=== PATIENT | female | born 1980 | race Hispanic/Latino ===

== ENCOUNTER 2024-07-24 09:13 | Outpatient (CLI) | payer MEDICAID, SELFPAY ==
--- NOTE | ~2024-07-24 | MM_ITS ---
MM screening RODNEY implant BI W marlys INDICATION: Asymptomatic COMPARISON: 12/14/2018 and 11/21/2015 TECHNIQUE: Digital Breast Tomosynthesis CC, MLO, and implant displaced CC and MLO views of Both breas ts were obtained with computer-aided detection to assist in interpretation of the study. FINDINGS: : There are scattered areas of fibroglandular density. Bilateral breast retroglandular silicone implant in place appears intact. There is an asymmetry seen on the MLO ID view in the superior left breast centered at 5.9 cm posterio r to the nipple. No other focal dominant mass, architectural distortion, or suspicious microcalcifications are identif ied. IMPRESSION: 1. Left breast Asymmetry. 2. No evidence of malignancy in the Right breast. 3. Bilateral breast Retroglandular silicone implant appears intact. RECOMMENDATION: Left breast Diagnostic mammogram with true lateral, appropriate spot compression views and an ultraso und if needed. BI-RADS 0, INCOMPLETE, NEEDS ADDITIONAL IMAGING EVALUATION Reviewed, dictated and finalized at location B. IMPRESSION: 1. Left breast Asymmetry. 2. No evidence of malignancy in the Right breast. 3. Bilateral breast Retroglandular silicone implant appears intact. RECOMMENDATION: Left breast Diagnostic mammogram with true lateral, appropriate spot compressio n views and an ultrasound if needed. BI-RADS 0, INCOMPLETE, NEEDS ADDITIONAL IMAGING EVALUATION
--- OUTSIDE RECORDS SUMMARY | 2024-07-24 09:30 | XMS_ITS | Clinical Summary ---
Author Organization [facility] Address [address] [place] [address] Phone Care Team Providers Care Forge Hand Name Role Phone Kerrie Haque MD Primary Care Provider + Allergies No known active allergies Medications HYDROcodone-alyssia taminophen (HYCET) 7.5-325 mg/15 mL SolutionIndicat ions:Morbid obesity with body mass index of 40.0-49.9 (CMS/HCC) Take 15 mL by mouth every 6 hours as needed for Pain, Break-Through . Max Daily Amount: 60 mL 280 mL 10/26/2018 2:10 PM CDT 10/25/2018 Active ondansetron (ZOFRAN ODT) 4 mg Tablet, Rapid Dissolve Take 1 Tablet (4 mg) by mouth every 8 hours as needed for Nausea. Dissolve tablet on top of tongue, then swallow with saliva. 30 Tablet 10/26/2018 2:10 PM CDT 10/26/2018 Active Active Problems Problem Noted Date Diagnosed Date Obesity 10/25/2018 Morbid obesity with body mass index of 40.0-49.9 10/25/2018 Immunizations Immunization Administration Dates Next Due Influenza Seasonal Unspecified Formulation IM Social History Tobacco Use Types Packs/Day Years Used Date Smoking Tobacco: Never Smokeless Tobacco: Never Alcohol Use Standard Drinks/Week Comments Never 0 (1 standard drink = 0.6 oz pur e alcohol) Comments No Sex and Gender Information Value Date Recorded Sex Assigned at Not on file Legal Sex Female 8:45 AM CDT Gender Identity Not on file Sexual Orientation Not on file Last Filed Vital Signs Vital Sign Reading Time Taken Comments Blood Pressure 123/60 10/26/2018 4:50 PM CDT Pulse 62 10/26/2018 4:50 PM CDT Temperature 36.3 C (97.4 F) 10/26/2018 4:50 PM CDT Respiratory Rate 18 10/26/2018 4:50 PM CDT Oxygen Saturation 100% 10/26/2018 4:50 PM CDT Inhaled Oxygen Concentration - - Weight 106 kg (233 lb 11.2 oz) 10/26/2018 4:25 A M CDT Height 157.5 cm (5' 2) 10/25/2018 5:35 PM CDT Body Mass Index 42.74 10/25/2018 5:35 PM CDT Plan of Treatment Health Maintenance Due Date Last Done Comments Pre-Diabetes and Diabetes Screening 1980 DTAP/TDAP/TD VACCINES (1 - Tdap) 08/14/1999 HEPATITIS B VACCINES (1 of 3 - 19+ 3-dose series) 08/14/1999 HPV/Cotest (21-29) 2001 CERVICAL CANCER SCREENING 2010 HPV/Cotest (30-65) 2010 PAP SMEAR 2010 BREAST CANCER SCREENING 2020 INFLUENZA VACCINE (#1) 2023 12/12/2017 HPV VACCINES Aged Out No longer eligi ble based on patient's age to complete this topic Medical Devices Implanted Type Area Gray Mixing Operator Device Identifier Shelf Expiration Date Model / Serial / Lot Seamguard Endogia 60 Blck [id number] - [id number] Implanted:Qty : 2 on 10/25/2018 by Perfecto Galeana MD at [facility] [employer] N/A: Stomach [employer] 07/21/2021 [id number] / / [id number] Seamguard Endogia 60 Prpl [id number] - [id number] Implanted:Qty : 2 on 10/25/2018 by Perfecto Galeana MD at [facility] [employer] N/A: Stomach [employer] 07/21/2021 [id number] / / [id number] Insurance [facility] MEDICAID RX [id number] Medicare Part D RX [employer] PL[employer] (INTERNAL) [facility] Plans Advance Directives For more information, please contact: [phone] * Full Code (Latest Code Status on File) Date Activated Date Inactivated Comments 10/25/2018 5:36 PM 10/26/2018 7:38 PM * Full Code Date Activated Date Inactivated Comments 10/25/2018 12:08 PM 10/25/2018 5:36 PM * Full Code Date Activated Date Inactivated Comments 10/25/2018 11:53 AM 10/25/2018 12:08 PM Care Teams Forge Hand Relationship Specialty Start Date End Date Kerrie Haque MD [address] [place] [address] [place] [phone] PCP - General Family Practice 10/12/18
--- OUTSIDE RECORDS SUMMARY | 2024-07-24 09:30 | XMS_ITS | Encounter Summary ---
Author Organization [facility] Address [address] [place] [address] Care Team Providers Care Salvage Determiner Name Role Phone Kerrie Haque MD Primary Care Provider + Encounter Details Date Type Department Care Team (Late st Contact Info) Description 10/17/2018 Abstract [facility] Non Integrated Provider [address] [place] [address] [place] [address] [place] [address] [place] [address] Social History Tobacco Use Types Packs/Day Years Used Date Smoking Tobacco: Never Smokeless Tobacco: Never Alcohol Use Standard Drinks/Week Comments Never 0 (1 standard drink = 0.6 oz pur e alcohol) Comments No Sex and Gender Information Value Date Recorded Sex Assigned at Not on file Legal Sex Female 8:45 AM CDT Gender Identity Not on file Sexual Orientation Not on file documented as of this encounter Plan of Treatment Not on file documented as of this encounter Visit Diagnoses Not on filedocumented in this encounter Care Teams Salvage Determiner Relationship Specialty Start Date End Date Kerrie Haque MD [address] [place] [address] [place] [phone] PCP - General Family Practice 10/12/18 documented as of this encounter
--- OUTSIDE RECORDS SUMMARY | 2024-07-24 09:30 | XMS_ITS | Clinical Summary ---
Author Organization [facility] Address [address] [address] Care Team Providers Care Corrosion Technician Name Role Phone Kerrie Haque MD Primary Care Provider [phone] Kerrie Haque MD Unavailable [phone] Source Comments [facility],non-owned Affiliates and Associated Physician Practices is amultiple site organization consisting of ambulatory clinics and hospital sitesin [place], [place], [place] and [place]. This disclosure is being madepursuant to the Care Everywhere program and may not contain all information available regarding this patient. Last updated 17.[facility] Allergies No known active allergies Medications * Be aware that medications may not be up to date on this document. Alwaysverify current medications with the patient. 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 Gender Identity Not on file Sexual Orientation Not on file Last Filed Vital Signs Vital Sign Reading Time Taken Comments Blood Pressure 134/82 11/08/2016 6:36 PM CDT Pulse 86 11/08/2016 6:36 PM CDT Temperature 36.7 C (98.1 F) 11/08/2016 6:36 PM CDT Respiratory Rate - - Oxygen Saturation 99% 11/08/2016 6:36 PM CDT Inhaled Oxygen Concentration - - Weight 91.2 kg (201 lb) 11/08/2016 6:36 PM CDT Height 160 cm (5' 3) 11/08/2016 6:36 PM CDT Body Mass Index 35.61 11/08/2016 6:36 PM CDT Plan of Treatment Health Maintenance Due Date Last Done Comments LIPID TESTING 1980 MAMMOGRAM 1980 HIV SCREENING 08/14/1995 HEPATITIS C SCREENING 08/09/1998 DTAP/TDAP/TD VACCINES (1 - Tdap) 08/14/1999 HEPATITIS B VACCINE (1 of 3 - 19+ 3-dose series) 08/14/1999 COVID-19 VACCINE (1 - 2023-2 5 season) 2023 DEPRESSION SCREENING 02/22/2024 INFLUENZA VACCINE (Season Ended) 2024 11/25/19 18 ZOSTER VACCINE (1 of 2) 2030 HIB VACCINE Aged Out No longer eligi ble based on patient's age to complete this topic HPV VACCINE Aged Out No longer eligi ble based on patient's age to complete this topic MENINGOCOCCAL (Group B) VACC INE SHARED DECISION-MAKING Aged Out No longer eligibl e based on patient's age to complete this topic MENINGOCOCCAL GROUPS A/C/Y/W VACCINE Aged Out No longer eligible b ased on patient's age to complete this topic PNEUMOCOCCAL VACCINE Aged Out No long er eligible based on patient's age to complete this topic Insurance [facility] * Guarantor: MARGO ROSS Account Type Relation to Patient Date of Phone Billing Address Personal/Family 1980 [address] [place] [address] [facility] Care Teams Corrosion Technician Relationship Specialty Start Date End Date Kerrie Haque MD [address] [place] [phone] PCP - General Family Medicine 09/13/17 Kerrie Haque MD [address] [place] [phone] Family Medicine 09/13/17
--- OUTSIDE RECORDS SUMMARY | 2024-07-24 09:30 | XMS_ITS | Data Portability ---
Author Organization [place] [facility] [place], Main Office Address [address] [place] [address] Assessment No assessment recorded. Plan of Treatment Reminders Order Date Submit Date Provider Last Modified By Organization Details Last Modified Time Details Appointments Procedure 30 2024 09:00A Weston Parsons NP Not available Not available Not available Lab TSH + free T4, serum 2024 025 [facility], [address] [place], [address], 06/20/2024 17:41:37 T3, free, serum or plasma 2024 025 [facility], [address] [place], [address], 06/27/2024 08:21:19 lipid panel, serum 2024 025 [facility], [address] [place], [address], 06/20/2024 17:41:37 CBC w/ auto diff 2024 025 [facility], [address] [place], [address], 06/27/2024 08:21:19 ferritin, serum or plasma 2024 025 [facility], [address] [place], [address], 06/27/2024 08:21:20 magnesium , serum or plasma 2024 025 [facility], [address] [place], [address], 06/27/2024 08:21:20 iron + total iron-bind ing capacity (TIBC), serum 2024 025 [facility], [address] [place], [address], 06/27/2024 08:21:20 vitamin D, 25-hydrox y, total, serum 2024 [facility], [address] [place], [address], 06/27/2024 08:21:20 vitamin B12 + folate, serum or blood 2024 025 [facility], [address] [place], [address], 06/20/2024 17:41:38 CMP, serum or plasma 2024 025 [facility], [address] [place], [address], 06/20/2024 17:41:37 HbA1c (hemoglob in A1c), blood 2024 [facility], [address] [place], [address], 06/27/2024 08:21:19 Referral neurologi viji surgeon referral - Please call patient to schedule an appointme nt. Pt has [facility] as of July 22 per patient.. Thank you. 2024 GINA Fuller MD, [address] [facility], [address], [place], [address], 07/23/2024 18:25:17 Procedures None recorded. Surgeries None recorded. Imaging MAMMO, screening , digital, bilateral - Please call patient to schedule. 2024 025 [email or web address] ([facility]), [address], [place], [address], 07/19/2024 11:01:12 Medication Orders lactulose 10 gram/15 mL oral solution 2024 025 [id number], [address], [place], [place], [id number], 06/18/2024 09:34:51 Patient TargetsNo targets recorded. Patient InstructionsNo instructions recorded. Reason for Referral Neurological Surgeon Referra l for Chronic low back pain Please call patient to schedule an appointment. Pt has [facility] as of July 22 per patient.. Thank you. Referring Physician: Angeline Parsons, Family Medicine, Encounter Date: 06/18/2024 Results Created Date Observation Date Name Description Value Unit Range Abnormal Flag Note LastModifiedBy Organization Detail LastModifiedTime Result Notes None recorded. Problems Name Problem SNOMED Code Status Onset Date Resolution Date Notes Provider Name and Address Organization Details Recorded Time Dysuria 40463732 Active 2022 Kerrie Haque MD [address], [place] [address], [place], [address], [employer] 3 12:32:02 Chronic low back pain 124541133 Active 2024 MARCO A Patiño [address], [place] [address], [place], [address], [employer] 5 09:27:11 Constipation 00521069 Active 2024 MARCO A Patiño [address] [place] [address], [place], [address], [employer] 5 09:30:05 Problem Notes None recorded. Procedures Surgical History Date Name Laterality Status Provider Name and Address Organization Details Recorded Time bariatric operative procedure completed Rosalinda Juarez MA [facility] 06/18/2024 09:09:11 graft of skin to skin completed Rosalinda Juarez MA [facility] 06/18/2024 09:09:32 abdominoplasty completed Rosalinda Juarez MA [facility] 06/18/2024 09:10:12 ligation of fallopian tube completed Rosalinda Juarez MA [facility] 06/18/2024 09:10:49 Imaging Results None recorded. Procedure Notes None recorded. Medical Equipment None Reported. Allergies No known drug allergies Medications Name Sig Start Date Stop Date Status Note LastModified by Organization Details LastModified Time cyclobenzap rine 10 mg tablet TAKE 1/2 TO 1 TABLET BY MOUTH TWICE A DAY 06/18 completed Not Available Not Available Not Available prednisone 10 mg tablet PLEASE SEE ATTACHED FOR DETAILED DIRECTION S 06/18 completed Not Available Not Available Not Available ciprofloxac in 750 mg tablet TAKE 1 TABLET BY MOUTH EVERY DAY 06/18 completed Not Available Not Available Not Available azithromyci n 250 mg tablet 01/28 completed Not Available Not Available Not Available ibuprofen 800 mg tablet 01/28 completed Not Available Not Available Not Available fluconazole 150 mg tablet Take 1 tablet by oral route for 1 day. 01/28 completed Not Available Not Available Not Available phenazopyri dine 200 mg tablet TAKE 1 TABLET BY MOUTH EVERY 6 TO 8 HOURS NEEDED *MAX 3 DOSES/DAY * 06/18 completed Not Available Not Available Not Available prednisone 20 mg tablet TAKE 3 TABS DAILY X 3 DAYS, 2 TABS DAILY X 3 DAYS, 1 TAB DAILY X 3 DAYS,THEN 1/2 DAILY X 3 DAYS 06/18 completed Not Available Not Available Not Available terconazole 0.8 % vaginal cream 01/28 completed Not Available Not Available Not Available oxycodone 5 mg/5 mL oral solution TAKE 5MLS BY MOUTH EVERY 4 6 HOURS NEEDED FOR PAIN 06/18 completed Not Available Not Available Not Available topiramate 25 mg tablet 01/28 completed Not Available Not Available Not Available triamcinolo ne acetonide 0.5 % topical ointment APPLY TO AFFECTED AREA TWICE A DAY 06/18 completed Not Available Not Available Not Available ciprofloxac in 250 mg tablet 01/28 completed Not Available Not Available Not Available sulfamethox azole 800 mg-trimetho prim 160 mg tablet Take 1 tablet every 12 hours by oral route for 7 days. 06/18 completed Not Available Not Available Not Available aspirin 81 mg tablet,yenni yed release TAKE 1 TABLET BY MOUTH EVERY DAY 01/28 completed Not Available Not Available Not Available triamcinolo ne acetonide 0.1 % topical cream APPLY A THIN LAYER TO THE AFFECTED AREA(S) TWICE A DAY NEEDED FOR RASH 06/18 completed Not Available Not Available Not Available acyclovir 800 mg tablet 01/28 completed Not Available Not Available Not Available oxycodone-a cetaminophe n 5 mg-325 mg tablet TAKE 1 TABLET BY MOUTH EVERY 6 HOURS NEEDED FOR BREAKTHRO UGH PAIN 01/28 completed Not Available Not Available Not Available benzonatate 100 mg capsule TAKE 1-2 CAPSULES BY MOUTH THREE TIMES A DAY 01/28 completed Not Available Not Available Not Available triamcinolo ne acetonide 40 mg/mL suspension for injection Take 1 mL by injection route. 06/18 completed Not Available Not Available Not Available cephalexin 500 mg capsule TAKE 1 CAPSULE BY MOUTH EVERY 12 HOURS FOR 7 DAYS 01/28 completed Not Available Not Available Not Available cyanocobala min (vit B-12) 1,000 mcg/mL injection solution Inject 1 mL every month by subcutane ous route. 06/18 completed Not Available Not Available Not Available ferrous sulfate 325 mg (65 mg iron) tablet 06/18 completed Not Available Not Available Not Available progesteron e micronized 200 mg capsule TAKE 1 CAPSULE BY MOUTH TWICE A DAY 01/28 completed Not Available Not Available Not Available folic acid 1 mg tablet TAKE 1 TABLET BY MOUTH 4 TIMES A DAY DIRECTED 01/28 completed Not Available Not Available Not Available hydroxyzine HCl 25 mg tablet TAKE 1 TABLET BY MOUTH EVERY 6 TO 8 HOURS NEEDED 06/18 completed Not Available Not Available Not Available letrozole 2.5 mg tablet 06/18 completed Not Available Not Available Not Available methylpredn isolone 4 mg tablets in a dose pack TAKE 6 TABLETS ON DAY 1 DIRECTED ON PACKAGE AND DECREASE BY 1 TAB EACH DAY FOR A TOTAL OF 6 DAYS 01/28 completed Not Available Not Available Not Available ondansetron 4 mg disintegrat ing tablet 01/28 completed Not Available Not Available Not Available phentermine 37.5 mg capsule TAKE 1 CAPSULE BY MOUTH EVERY DAY 01/28 completed Not Available Not Available Not Available metoclopram ricci 10 mg tablet 01/28 completed Not Available Not Available Not Available nitrofurant oin monohydrate /macrocryst als 100 mg capsule TAKE 1 CAPSULE BY MOUTH TWICE A DAY FOR 5 DAYS 06/18 completed Not Available Not Available Not Available lactulose 10 gram/15 mL oral solution TAKE 15ML BY MOUTH EVERY DAY active Not Available Not Available No t Available Calcium 600 + D(3) 600 mg-10 mcg (400 unit) tablet TAKE 1 TABLET BY MOUTH TWICE A DAY active Not Available Not Available No t Available 28 mg iron-800 mcg tablet 01/28 completed Not Available Not Available Not Available PrePlus 27 mg iron-1 mg tablet TAKE 1 TABLET BY MOUTH EVERY DAY 06/18 completed Not Available Not Available Not Available Vol-Plus 27 mg iron-1 mg tablet 06/18 completed Not Available Not Available Not Available Bariatric Multivitami ns active Not Available Not Available Not Available Vitals Date Recorded Body mass index (BMI) Body height Oxygen saturation Oxygen saturation in Arterial blood by Pulse oximetry Heart rate Body temperature Body weight Provider Name and Address Organization Details Last Updated DateTime 2 24.8 kg/m2 160.02 cm 98 % 98 % 78 /min 96.9 [degF] 61970.9 3 g Not Available [facility] 3 14:54:24 Date Recorded Body height Body mass index (BMI) Body weight Body temperature Heart rate Oxygen saturation Oxygen saturation in Arterial blood by Pulse oximetry Systolic blood pressure Diastolic blood pressure Provider Name and Address Organization Details Last Updated DateTime 5 157.48 cm 28.3 kg/m2 99724.8 2 g 98.5 [degF] 75 /min 99 % 99 % 114 mm[Hg] 68 mm[Hg] Rosalinda Juarez MA [place] [employer] [facility] 5 09:05:08 Date Recorded Body mass index (BMI) Body height Oxygen saturation Oxygen saturation in Arterial blood by Pulse oximetry Heart rate Body temperature Body weight Systolic blood pressure Diastolic blood pressure Provider Name and Address Organization Details Last Updated DateTime 2 25.9 kg/m2 160.02 cm 98.02 % 98.02 % 76.02 /min 97.3 [degF] 98052.4 9 g 122 mm[Hg] 60 mm[Hg] Not Available [facility] 3 14:54:23 Date Recorded Body mass index (BMI) Body height Oxygen saturation Oxygen saturation in Arterial blood by Pulse oximetry Heart rate Body temperature Body weight Systolic blood pressure Diastolic blood pressure Provider Name and Address Organization Details Last Updated DateTime 1 24.1 kg/m2 160.02 cm 100 % 100 % 77 /min 97.9 [degF] 79204.5 6 g 122 mm[Hg] 64 mm[Hg] Not Available [facility] 3 14:54:23 Social History Question Answer Notes LastModified by [employer] ion Details LastModified Time Tobacco Smoking Status Never Smoker Not Available [facility] 04/21/2022 14:53:55 What Is Your Level Of Caffeine Consumption? None Information not available 06/18/2024 In The 14 Days Before Symptom Onset, Have You Had Close Contact With A Laboratory-confir med COVID-19 While That Case Was Ill? No [id number] Information not available 04/21/2022 In The 14 Days Before Symptom Onset, Have You Had Close Contact With A Person Who Is Under Investigation For COVID-19 While That Person Was Ill? No [id number] Information not available 04/21/2022 What Type Of Diet Are You Following? REGULAR [id number] Information not available 04/21/2022 Have There Been Any Changes To Your Family Or Social Situation? No Information no t available 06/18/2024 Do You Use Insect Repellent Routinely? Yes Information not available 06/18/2024 Where Do You Live? SingleLevelHouse Information not available 06/18/2024 What Was The Date Of Your Most Recent Tobacco Screening? 06/18/2024 Information not available 06/18/2024 How Many Children Do You Have? 6 Information not available 06/18/2024 Do You Have Any Pets? No Information not available 06/18/2024 What Is Your Relationship Status? Information not available 06/18/2024 Do You Use Your Seat Belt Or Car Seat Routinely? Yes Information not available 06/18/2024 Do You Have Smoke And Carbon Monoxide Detectors In Your Home? Yes Information not available 06/18/2024 Are You Passively Exposed To Smoke? No Information no t available 06/18/2024 Are There Any Smokers In Your House? No Information not available 06/18/2024 Do You Participate In Social Media? Yes Information not available 06/18/2024 Do You Use Sunscreen Routinely? Yes Information not available 06/18/2024 Has Tobacco Cessation Counseling Been Provided? No [id number] Information not available 04/21/2022 Have You Recently Traveled Abroad? No [id number] Information not available 04/21/2022 Are You Currently In School? No Information not available 06/18/2024 Do You Have Any Dietary Restrictions? No [id number] Information not available 04/21/2022 Sex: Unknown Functional Status Question Answer Note LastModified by Organizat ion Details LastModified Time Do you use any illicit or recreational drugs? No Information not available 06/18/2024 Do you or have you ever used any other forms of tobacco or nicotine? No [id number] Information not available 04/21/2022 What is your level of alcohol consumption? None Information not available 06/18/2024 Are you currently employed? No Information not available 06/18/2024 What is your exercise level? Occasional [id number] Information not available 04/21/2022 Mental Status Question Answer Note LastModified by Organization D etails LastModified Time Do you feel stressed (tense, restless, nervous, or anxious, or unable to sleep at night)? [id number] Information not available 06/18/2024 Family History Relationship Description Onset Age of this Age Resolved Age Notes LastModified by Organization Details LastModified Time Mother Hypertensive disorder [id number] Not available 04/21/2022 14:54:10 Mother History of thyroid disorder frivastorres Not available 08:58:32 Father Hypertensive disorder [id number] Not available 04/21/2022 14:54:10 Father History of thyroid disorder frivastorres Not available 08:58:32 Medical History No medical history recorded. Gynecological History Statement/Question Response Abnormal Pap N Date of LMP 06/09/2024 STIs/STDs N Dislike of Light during Menstrual Headac he N Current Control Method Tubal Ligat ion Most Recent Mammogram Breast Problems no How many live births 6 Date of Last Colonoscopy Most Recent Bone Density Sexually Active? Y Weight gain N Menses Monthly Y Date of Last Pap Smear Discharge no Obstetrics History GPAL:G 6 P 6 0 0 6 Type Value Multiple Births 0 Full Term 6 Induced 0 Spontaneous 0 Premature 0 Living 6 Ectopics 0 Total 6 Immunizations Vaccine Type Date Status Note Provider Nam e and Address Organization Details Recorded Time COVID-19 IV Non-US Vaccine (COVAXIN) 05/04/2020 completed Not Available [facility] 3 14:57:06 Influenza, split virus, quadrivalent, PF 01/10/2022 completed Not Available [facility] 3 14:57:06 Past Encounters Encounter ID Performer Location Encounter Start Date Encounter Closed Date Diagnosis/Indication Diagnosis SNOMED-CT Code Diagnosis ICD10 Code Diagnosis Note [id number] MICHELLE Finley [facility] Primary Care [facility] [address] [facility] [address] [place] [address] 06/17/2020 00:00:00 06/17/2020 20:04:22 [id number] Kerrie Haque MD [facility] Primary Care [facility] [address] [facility] [address] [place] [address] 07/15/2020 00:00:00 07/15/2020 09:24:10 [id number] [facility] [address] [facility] [address] [place] [address] 08/12/2020 00:00:00 08/12/2020 10:58:45 [id number] JOSE Ortez [facility] [place] [address] [place] [address] 01/28/2021 00:00:00 01/28/2021 20:59:43 [id number] JOSE Ortez [facility] Primary [place] [address] [place] [address] 03/23/2021 00:00:00 03/23/2021 16:19:32 [id number] JOSE Ortez [facility] Primary [place] [address] [place] [address] 06/24/2021 00:00:00 06/24/2021 21:34:26 [id number] MARCO A Patiño [facility] [place] [address] [facility] [address] [place] [address] 06/18/2024 08:56:34 06/18/2024 09:34:45 Adult health examination 663800875 Z00.00 Discussed medication compliance and routine follow up.Discuss ed healthy diet and routine exercise.Dominga lopeziewed vaccine records and made recommenda tions as needed.Enc ouraged annual eye and dental exams, as well as twice yearly dental cleanings. Will check screening labs as listed below. Family his tory of Cardiovascular disease 101678996 Z82.49 Thyroid di sorder screening 387916946 Z13.29 Diabetes m ellitus screening 784944969 Z13.1 Screening mammography 24 248674 Z12.31 History of bariatric surgical procedure 824706932 Z98.84 Chronic low back pain 27 7080242 M54.50 accident in 2003, was previously seeing neuro and was told she needed surgery but did not want it at that time. Body mass index 25-29 - overweight 398498918 Z68.28 Weight: 155 poundsBMI: 28.3Discus sed healthy diet and routine exercise. Constipation 51907376 K5 9.00 Increase water intake as tolerated. Will restart Lactulose as listed below. [id number] MARCO A Patiño [facility] Primary [place] [address] [facility] [address] [place] [address] 06/20/2024 09:49:05 06/20/2024 10:21:06 Health Concerns Section Related Observation LastModified by Organization Detai ls LastModified Time None Recorded Concern Status LastModified by Organization Details LastModified Time None Recorded Advance Directives Directive None Recorded Payers Encounter Date Sequence Insurance Name Policy Number Policy Aaron Covered Member ID Aaron Member ID Guarantor Name 06/18/2024 1 [place] [employer] Margo Zavala [id number] Margo Zavala 06/20/2024 1 [place] [employer] [facility] Margo Strickland Zavala [id number] Margo Zavala Notes Date Note Type Note Provider Name and Address Organization Details Recorded Time 06/18/2024 text/html Patient is a 43 year old female that presents to the office to establish care. blurry vision over the last few months, has not been to the eye doctor. labs- orderedWWE- awareMammogram- orderedColonosco py-age 45Flu- declinesCovid- UTD, initialTdap- awareShingles-ag e 50 Angeline Parsons, [employer] [address] [facility] [facility] [address], [place], [address], [place] [facility] [place] [facility] 06/18/2024 09:35:15 OBGyn Episode No OBEpisode recorded.
== END 2024-07-24 09:14 | disposition home or self-care (01) ==
PROVIDERS: PCP Family Medicine; Visit Provider Nurse Practitioner Family
DX: Z12.31 Encounter for screening mammogram for malignant neoplasm of breast (principal); Z98.82 Breast implant status; R92.8 Other abnormal and inconclusive findings on diagnostic imaging of breast
CPT/HCPCS: 77063; 77067

== ENCOUNTER 2024-09-06 10:18 | Outpatient (CLI) | payer BC, SELFPAY ==
--- NOTE | ~2024-09-06 | MM_ITS ---
EXAMINATION: MM diag telly implant LT w marlys HISTORY: Left breast asymmetry TECHNIQUE: Additional 3-D tomosynthesis images of the left breast were performed and synthetic 2-D im ages were generated. CAD analysis was submitted and interpreted. COMPARISON: 08/10/2024 BREAST PARENCHYMAL COMPOSITION:Not Dense. There are scattered areas of fibroglandular density. FINDINGS: Left breast asymmetry effaces with spot compression. No persistent mass lesion or distortio n seen. No suspicious microcalcifications. IMPRESSION: No mammographic evidence for malignancy. BI-RADS Category 1: Negative Reviewed, dictated and finalized at location .
--- OUTSIDE RECORDS SUMMARY | 2024-09-06 10:21 | XMS_ITS | Data Portability ---
Author Organization [facility] Address [address] [place] [address] Assessment No assessment recorded. Plan of Treatment Reminders Order Date Submit Date Provider Last Modified By Organization Details Last Modified Time Details Appointments None recorded. Lab test, urine 2018 019 blair In-Office Order, Internal Use Only DO Not Attach Compendium DO Not Attach Compendium, Do Not Delete/merge, [id number] 11:37:58 urinalysi s, dipstick 2018 019 blair In-Office Order, Internal Use Only DO Not Attach Compendium DO Not Attach Compendium, Do Not Delete/merge, [id number] 11:37:58 Referral None recorded. Procedures None recorded. Surgeries None recorded. Imaging CT, abdomen + pelvis, w/wo contrast 2018 019 [facility] ([facility]), [address] [place], [address], 9 17:37:55 Medication Orders cyanocoba pascual (vit B-12) 1,000 mcg/mL injection solution 2018 019 [email or web address] Not available 9 12:53:46 cyanocoba pascual (vit B-12) 1,000 mcg/mL injection solution 2018 019 [email or web address] Not available 9 11:29:12 cyanocoba pascual (vit B-12) 1,000 mcg/mL injection solution 2018 019 mwasserman Not available 9 17:14:45 Patient TargetsNo targets recorded. Patient Instructions Encounter Date Encounter Id Patient Instructions Last Modified By Organization Details Last Modified Time 05/11/[id number] scan of the abdomen: about this test blair Not available 05/11/2018 18:13:52 CT scan (3-D) blair Not available 0 05/11/2018 18:13:52 After Age 35: Care Instructions [email or web address] Not available 05/11/2018 11:37:58 12/08/2018 [id number] influenza (flu) vaccine: care instructions blair Not available 12/10/2018 12:53:46 Reason for Referral None Reported. Results Created Date Observation Date Name Description Value Unit Range Abnormal Flag Note LastModifiedBy Organization Detail LastModifiedTime 05/12/19 19 05/11/2018 urina lysis , dipst ick Leukocytes Negati ve Not Available In-Office Order Internal Use Only DO Not Attach Compendium DO Not Attach Compendium, Do Not Delete/merge, [id number] 05/11/2018 11:13:24 05/12/19 19 05/11/2018 urina lysis , dipst ick Nitrite positi ve Not Available In-Office Order Internal Use Only DO Not Attach Compendium DO Not Attach Compendium, Do Not Delete/merge, [id number] 05/11/2018 11:13:24 05/12/19 19 05/11/2018 urina lysis , dipst ick Urobilinogen 1 Not Available In-Of fice Order Internal Use Only DO Not Attach Compendium DO Not Attach Compendium, Do Not Delete/merge, [id number] 05/11/2018 11:13:24 05/12/19 19 05/11/2018 urina lysis , dipst ick Protein 300 Not Available In-Office Order Internal Use Only DO Not Attach Compendium DO Not Attach Compendium, Do Not Delete/merge, [id number] 05/11/2018 11:13:24 05/12/19 19 05/11/2018 urina lysis , dipst ick pH 5.0 Not Available In-Office Order Internal Use Only DO Not Attach Compendium DO Not Attach Compendium, Do Not Delete/merge, [id number] 05/11/2018 11:13:24 05/12/19 19 05/11/2018 urina lysis , dipst ick Blood Large Not Available In-Office Order Internal Use Only DO Not Attach Compendium DO Not Attach Compendium, Do Not Delete/merge, [id number] 05/11/2018 11:13:24 05/12/19 19 05/11/2018 urina lysis , dipst ick Specific [place] 1.020 Not Available In-Off ice Order Internal Use Only DO Not Attach Compendium DO Not Attach Compendium, Do Not Delete/merge, [id number] 05/11/2018 11:13:24 05/12/19 19 05/11/2018 urina lysis , dipst ick Ketone Small Not Available In-Office Order Internal Use Only DO Not Attach Compendium DO Not Attach Compendium, Do Not Delete/merge, [id number] 05/11/2018 11:13:24 05/12/19 19 05/11/2018 urina lysis , dipst ick Bilirubin Modera te Not Available In-Office Order Internal Use Only DO Not Attach Compendium DO Not Attach Compendium, Do Not Delete/merge, [id number] 05/11/2018 11:13:24 05/12/19 19 05/11/2018 urina lysis , dipst ick Glucose Negati ve Not Available In-Office Order Internal Use Only DO Not Attach Compendium DO Not Attach Compendium, Do Not Delete/merge, [id number] 05/11/2018 11:13:24 05/12/19 19 05/11/2018 pregn zoe test, urine HCG negati ve Not Available In-Office Order Internal Use Only DO Not Attach Compendium DO Not Attach Compendium, Do Not Delete/merge, [id number] 05/11/2018 11:13:16 05/27/1905/21/2018 CT, abdom en + pelvi s, w/wo contr ast No observ ation record ed. [facility] ([facility]) [address] [place], [address], 05/26/2018 17:37:55 Result Notes None recorded. Problems Name Problem SNOMED Code Status Onset Date Resolution Date Notes Provider Name and Address Organization Details Recorded Time Polycysti c ovaries Active Lorna Ellisaw, [place] null, [place] - [facility] 8 10:26:15 Irritable bowel syndrome 11061309 Active Lorna PetersshawANGELITO [place], [place] - [facility] 8 10:26:15 Hyperlipi demia 83361396 Active Josemanuel BlevinsANGELITO zuniga [place], [place] - [facility] 9 11:23:47 Deliverie s by Active 2017 Becky Varsha [place] [facility] 0 09:19:18 Obesity 426167460 Active 2017 Santos Carreno [place] [facility] 8 11:15:50 Deliverie s by Completed 2017 Becky Varsha [place] [facility] 0 09:19:18 60154256 Completed 201708/29/2017 Santos Carren[place] [facility] 8 10:59:48 Advanced maternal age 316531504 Completed 2017 Becky Varsha [place] [facility] 0 09:19:17 Advanced maternal age 528538080 Active 2017 Becky Vars[place] [facility] 0 09:19:17 Chronic idiopathi c constipat ion 30830309 Completed 2017 Becky V[place] [facility] 0 09:19:17 Chronic idiopathi c constipat ion 56688453 Active 2017 Becky Vars[place] [facility] 0 09:19:17 Herpes simplex 75118221 Completed 2017 Becky Vars[place] [facility] 0 09:19:18 Herpes simplex 94854693 Active 2017 Becky [place] [facility] 0 09:19:18 5,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 16235204 Completed 2017 Becky Varsha [place], [place] [facility] 0 09:19:17 5,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 Procedures Surgical History Date Name Laterality Status Provider Name and Address Organization Details Recorded Time 9 TUBAL LIGATION AT TIME OF (SURG) completed Santos Carreno [facility] 04/13/2018 21:21:26 8 Date of Last Pap Smear completed Lorna Mireles MA [facility] 07/12/2017 10:30:28 4 Caesarean Section completed Lorna Mireles MA [facility] 07/12/2017 10:35:19 2 Other completed Margaret Eric MA [facility] 10/22/2014 14:57:59 2 Other completed Margaret Eric MA [facility] 10/22/2014 14:57:59 8 Caesarean Section completed Lorna Mireles MA [facility] 07/12/2017 10:35:29 Imaging Results None recorded. Procedure Notes None recorded. Medical Equipment None Reported. Allergies No known drug allergies Medications Name Sig Start Date Stop Date Status Note LastModified by Organization Details LastModified Time metformin 500 mg tablet Take 1 tablet twice a day by oral route. 07/12 completed Not Available Not Available Not Available azithromyci n 250 mg tablet 12/08 completed Not Available Not Available Not Available ibuprofen 800 mg tablet 12/08 completed Not Available Not Available Not Available fluconazole 150 mg tablet Take 1 tablet by oral route. 08/29 completed Not Available Not Available Not Available hydrocodone 5 mg-acetamin ophen 325 mg tablet 07/12 completed Not Available Not Available Not Available terconazole 0.8 % vaginal cream Insert 1 applicato rful every day by vaginal route for 3 days. 08/29 completed Not Available Not Available Not Available Maximo Low Dose Aspirin 81 mg tablet,yenni yed release Take 1 tablet every day by oral route. 12/08 completed Not Available Not Available Not Available penicillin V potassium 500 mg tablet 08/29 completed Not Available Not Available Not Available topiramate 25 mg tablet 10/25 completed Not Available Not Available Not Available metronidazo le 500 mg tablet 07/12 completed Not Available Not Available Not Available ciprofloxac in 250 mg tablet 07/12 completed Not Available Not Available Not Available ciprofloxac in 500 mg tablet 07/12 completed Not Available Not Available Not Available sulfamethox azole 800 mg-trimetho prim 160 mg tablet 07/12 completed Not Available Not Available Not Available tramadol 50 mg tablet 07/12 completed Not Available Not Available Not Available acyclovir 800 mg tablet Take 1 tablet every day by oral route. 12/08 completed Not Available Not Available Not Available Vitamin tablet Take 1 tablet every day by oral route as directed for 90 days. 2017 active Not Available Not Available Not Avai lable oxycodone-a cetaminophe n 5 mg-325 mg tablet 12/08 completed Not Available Not Available Not Available amoxicillin 875 mg tablet 08/29 completed Not Available Not Available Not Available dicyclomine 20 mg tablet 12/08 completed Not Available Not Available Not Available cephalexin 500 mg capsule TAKE 1 CAPSULE(S ) 3 TIMES A DAY BY ORAL ROUTE FOR 10 DAYS. 12/08 completed Not Available Not Available Not Available simvastatin 20 mg tablet Take 1 tablet every day by oral route. 07/12 completed Not Available Not Available Not Available cyanocobala min (vit B-12) 1,000 mcg/mL injection solution Inject 1 mL every month by subcutane ous route. 2018 active Not Available Not Available Not Avai lable ferrous sulfate 325 mg (65 mg iron) tablet active Not Available Not Available Not Available promethazin e 25 mg tablet 07/12 completed Not Available Not Available Not Available progesteron e micronized 200 mg capsule one PO twice daily 12/08 completed Not Available Not Available Not Available diclofenac sodium 75 mg tablet,yenni yed release 07/12 completed Not Available Not Available Not Available folic acid 1 mg tablet Take 1 tablet 4 times a day by oral route as directed. 12/08 completed Not Available Not Available Not Available levofloxaci n 500 mg tablet 07/12 completed Not Available Not Available Not Available letrozole 2.5 mg tablet Take 1 tablet every day by oral route. 08/29 completed Not Available Not Available Not Available Vitamin D2 1,250 mcg (50,000 unit) capsule 07/12 completed Not Available Not Available Not Available norethindro ne (contracept [place]) 0.35 mg tablet Take 1 tablet every day by oral route. 07/12 completed Not Available Not Available Not Available ondansetron 4 mg disintegrat ing tablet 10/25 completed Not Available Not Available Not Available medroxyprog esterone 150 mg/mL intramuscul ar suspension 07/12 completed Not Available Not Available Not Available dicyclomine 10 mg capsule Take 1 capsule 3 times a day by oral route as needed. 07/12 completed Not Available Not Available Not Available naproxen 500 mg tablet Take 1 tablet twice a day by oral route. 07/12 completed Not Available Not Available Not Available metoclopram ricci 10 mg tablet Take 1 tablet 4 times a day by oral route. active Not Available Not Available No t Available amoxicillin 875 mg-potassiu m clavulanate 125 mg tablet 08/29 completed Not Available Not Available Not Available Oyster Shell Calcium-Vit pardo D3 500 mg-5 mcg (200 unit) tablet 08/29 completed Not Available Not Available Not Available topiramate 50 mg tablet 08/29 completed Not Available Not Available Not Available nitrofurant oin monohydrate /macrocryst als 100 mg capsule 12/08 completed Not Available Not Available Not Available lactulose 10 gram/15 mL oral solution Take 15 mL every day by oral route. active Not Available Not Available No t Available Calcium 600 + D(3) 600 mg-10 mcg (400 unit) tablet Take 1 tablet twice a day by oral route. 01/16 completed Not Available Not Available Not Available Calcium with Vitamin D3 600 mg (carbonate) -10 mcg (400 unit) capsule Take 1 capsule twice a day by oral route. 2018 active Not Available Not Available Not Avai lable Calcium 500 + D 500 mg-10 mcg (400 unit) tablet Take 1 tablet by oral route. 07/12 completed Not Available Not Available Not Available 28 mg iron-800 mcg tablet active Not Available Not Available N ot Available lactulose 10 gram/15 mL (15 mL) oral solution Take 15 mL every day by oral route. 07/12 completed Not Available Not Available Not Available Linzess 145 mcg capsule Take 1 capsule every day by oral route. 07/12 completed Not Available Not Available Not Available PrePlus 27 mg iron-1 mg tablet Take 1 tablet every day by oral route. 12/08 completed Not Available Not Available Not Available Xulane 150 mcg-35 mcg/24 hr transdermal patch Appy 1 patch to skin weekly 2014 active Not Available Not Available Not Avai lable Vol-Plus 27 mg iron-1 mg tablet TAKE 1 TABLET(S) EVERY DAY BY ORAL ROUTE. FOR VITAMIN DEFICIENC Y 12/08 completed Not Available Not Available Not Available Vitals Date Recorded Body height Body mass index (BMI) Body weight Systolic And Diastolic Provider Name and Address Organization Details Last Updated DateTime 05/11/2018 160.02 cm 39.5 kg/m2 272503.1 g 126/78 mm[Hg] Josemanuel Kim MA [facility] 05/11/2018 11:26:29 Date Recorded Body height Body mass index (BMI) Body weight Provider Name and Address Organization Details Last Updated DateTime 12/08/2018 160.02 cm 37.4 kg/m2 04318.99 g Kerrie Mena MA [facility] 12/08/2018 15:25:44 Social History Question Answer Notes LastModified by Organizat ion Details LastModified Time Tobacco Smoking Status Never Smoker Margaret Eric MA null, [facility] 10/22/2014 14:57:59 Do You Have An Advance Directive? No Information not available 10/22/2014 If You Are , What Was Your Level Of Alcohol Consumption Prior To ? None Information not available 08/29/2017 Is Blood Transfusion Acceptable In An Emergency? Yes Information not available 10/22/2014 What Is Your Level Of Caffeine Consumption? Occasional Information not available 10/22/2014 Live With Cats/exposure To Cat Litter No Information not available 08/29/2017 How Much Tobacco Do You Chew? None Information not available 10/22/2014 What Type Of Diet Are You Following? REGULAR Information not available 10/22/2014 Which Illicit Or Recreational Drugs Have You Used? None Information not available 10/22/2014 Education 10 Information no t available 10/22/2014 Have There Been Any Changes To Your Family Or Social Situation? No Information no t available 08/29/2017 Frequent Air Travel No Information not available 08/29/2017 Illicit Drugs Pre- None Information not available 08/29/2017 How Many Years Have You Used Illicit Or Recreational Drugs? 0 Information not available 12/08/2018 Live Alone Or With Others? With Others Information not available 10/22/2014 Marital Status [email or web address] Informatio n not available 12/08/2018 What Was The Date Of Your Most Recent Tobacco Screening? 05/11/2018 Information not available 09/14/2018 How Many Children Do You Have? [facility] Information not available 05/11/2018 Performs Monthly Self-breast Exam? Yes Information no t available 10/22/2014 Do You Use Protection During Sex? No Information not available 10/22/2014 What Is Your Relationship Status? Information not available 10/22/2014 Seat Belts Used Routinely Yes Information not available 10/22/2014 Are You Sexually Active? Yes Information not available 10/22/2014 Do You Have Smoke And Carbon Monoxide Detectors In Your Home? Yes Information not available 08/29/2017 Are You Passively Exposed To Smoke? No Information no t available 08/29/2017 How Much Tobacco Do You Smoke? No Information not available 10/22/2014 Smoking Pre- No [email or web address] Information not available 08/29/2017 General Stress Level Low Information not available 10/22/2014 Do You Use Sunscreen Routinely? Yes Information not available 10/22/2014 Supplements Prenatals [email or web address] Information n ot available 08/29/2017 How Many Years Have You Smoked Tobacco? 0 Information not available 10/22/2014 Sex: Unknown Functional Status Question Answer Note LastModified by Organizat ion Details LastModified Time What is your level of alcohol consumption? None Information not available 10/22/2014 Do you or have you ever used smokeless tobacco? Never used smokeless tobacco [email or web address] Information not available 12/08/2018 Are you currently employed? 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 Never used electronic cigarettes [email or web address] Information not available 12/08/2018 What is your exercise level? Occasional Information not available 10/22/2014 Mental Status None recorded. Family History Relationship Description Onset Age of this Age Resolved Age Notes LastModified by Organization Details LastModified Time Maternal Grandmother Heart disease 80 [email or web address] Not available 07/12 10:33:26 Paternal Aunt Malignant tumor of breast pt states severa l aunts c breast ca, and diabet es, cb-rma cbrad Not available 07/12/2017 10:34:36 Medical History Condition Response Heart Problems N Other N High Blood Pressure N Breast Cancer N Thyroid Problems N Kidney or Bladder Problems N GI Problems N Lung Disease N Depression N Blood Clots N Acne N Breast Problem N Eating Disorder N Anemia N Anesthesia Complications N Headaches/Migraines N Anxiety Disorder N Diabetes N Ovarian Cancer N Blood Transfusions N Arthritis N Polyps N Infertility N Acid Reflux (GERD) N Cancer N Stroke N Abuse/Domestic Violence N Asthma N Endometriosis N High Cholesterol N Hepatitis N Liver Disease N Heart Disease N Fibromyalgia N Pre-Eclampsia N Hypertension N Osteoporosis N Kidney Disease N Gynecological History Statement/Question Response Abnormal Pap N Flow Heavy On BCP's at Conception? N STIs/STDs N HPV Vaccine N Duration of Flow (days) 4 Age at Menarche 12 Current Control Method Tubal Ligat ion Age at First Child 15 Sexually Active? Y Menses Monthly Y Date of Last Pap Smear 07/12/2017 Sexual Problems? Y LMP Approximate Desired Control Method Sterilizati on Obstetrics History GPAL:G 6 P 6 0 0 6 Type Value Multiple Births 0 Full Term 6 Induced 0 Spontaneous 0 Premature 0 Living 6 Ectopics 0 Total 6 Immunizations Vaccine Type Date Status Note Provider Alec cabello and Address Organization Details Recorded Time COVID-19 vaccine, vector-nr, rS-Ad26, PF, 0.5 mL 1 completed [facility], [place] - [facility] 08/14/2020 14:44:45 Influenza, split virus, quadrivalent, preservative 8 completed Not Available [facility] 03/10/2019 02:36:24 Tdap 8 completed Not Available [facility] 03/10/2019 02:36:56 Influenza, split virus, quadrivalent, PF 9 completed Not Available [facility] 03/10/2019 02:41:29 Past Encounters Encounter ID Performer Location Encounter Start Date Encounter Closed Date Diagnosis/Indication Diagnosis SNOMED-CT Code Diagnosis ICD10 Code Diagnosis Note [id number] [facility] [address] [place] [address] [id number] 0 10/22/2014 13:46:12 10/22/2014 15:34:58 Polycystic ovaries 94753654 Irritable bowel syndrome 37243444 [id number] Santos Carreno MD [facility] ([facility]) [address] [place] [address] [id number] 0 12/16/2015 15:54:33 12/18/2015 13:44:29 Uterine leiomyoma 28844810 D25.9 [id number] MD Steve Hernandez ([facility]) [address] [place] [address] [id number] 0 07/12/2017 09:52:57 07/12/2017 13:05:57 Gynecologic examination 80691564 Z01.419 Exposure t o sexually transmissible disorder 727741753 Z20.2 Fertility care 988886077 Z31.84 Deliveries by 995910263 O82 Polycystic ovaries 20693 008 E28.2 Obesity 987924605 E66.9 [id number] MD Steve Hernandez ([facility]) [address] [place] [address] [id number] 0 08/29/2017 10:13:05 08/29/2017 11:32:19 Routine care 427429995 Z34.91 Advanced m aternal age 532328406 O09.521 Deliveries by 973230022 O82 Repeat CS Obesity 987599836 E66.9 Polycystic ovaries 57088 008 E28.2 Chronic id iopathic constipation 77986438 K59.04 [id number] MD Steve Hernandez ([facility]) [address] [place] [address] [id number] 09/15/2017 09:37:14 09/15/2017 12:18:04 Seen by nurse 931971927 Z76.89 [id number] MD Steve Hernandez ([facility]) [address] [place] [address] [id number] 0 09/26/2017 10:48:33 09/26/2017 12:06:10 Routine care 424056925 Z34.91 Advanced m aternal age 959221412 O09.521 5,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 10512807 E72.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 Chronic id iopathic constipation 41836275 K59.04 Herpes simplex 43680645 B00.9 Irritable bowel syndrome 76284518 K58.9 Deliveries by O82 Repeat CS Obesity 732480313 E66.9 Exposure t o sexually transmissible disorder 389350122 Z20.2 Z11.3 [id number] MD Steve Hernandez ([facility]) [address] [place] [address] [id number] 0 10/04/2017 15:03:47 10/05/2017 10:47:59 5,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 77526980 E72.12 homozygous for the MTHFR Q2602U variant Advanced m aternal age 074215257 O09.521 Herpes simplex 97113347 B00.9 Deliveries by 404401629 O82 Repeat CS Obesity 227474021 E66.9 Routine an tenatal care 427883851 Z34.91 [id number] [facility] [address] [place] [address] [id number] 0 10/25/2017 11:20:58 10/25/2017 12:55:19 Routine care 246391588 Z34.91 Advanced m aternal age 661709624 O09.521 5,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 B12 injection 11/24, Advanced m aternal age 350943021 O09.521 Had level 2 US and AFP - both normal. Herpes simplex 17671747 B00.9 on antiviral Deliveries by 405978575 O82 Repeat C/S Administra tion of influenza vaccine 22724684 Z23 [id number] [facility] [address] [place] [address] [id number] 0 12/22/2017 10:39:02 12/22/2017 12:00:48 Routine care 701342776 Z34.91 1 hr GTT and CBC at next visit. Tdap at next visit. Homozygous methylenetetrahydrofo late reductase mutation 9667481086 12467 E72.12 Advanced m aternal age 935443270 O09.521 Had level 2 US and AFP - both normal. Herpes simplex 20639746 B00.9 on antiviral 5,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 53758688 E72.12 homozygous for the MTHFR B7664Z variant. B12 injection 11/24, 12/22 screening 2437 25347 Z36.9 Deliveries by O82 Repeat C/S Sterilizat ion requested 852290935 Z30.2 [id number] [facility] [address] [place] [address] [id number] 0 01/16/2018 09:27:11 01/16/2018 12:56:05 Routine care 949291192 Z34.91 Tdap, 1 hr GTT 01/16/18 screening 2437 29119 Z36.9 Homozygous methylenetetrahydrofo late reductase mutation 3325554744 68131 E72.12 B12 01/16/18 Advanced m aternal age 934259756 O09.521 Had level 2 US and AFP - both normal. Herpes simplex 22075333 B00.9 on antiviral Deliveries by O82 Repeat C/S [id number] [facility] [address] [place] [address] [id number] 0 03/30/2018 11:25:04 03/30/2018 15:15:58 Homozygous methylenetetrahydrofo late reductase mutation 2223716403 70548 E72.12 B12 given on 03/30/18 Routine an tenatal care 959461229 Z34.83 Tdap, 1 hr GTT 01/16/18 5,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 [id number] E72.12 homozygous for the MTHFR [id number] variant. B12 injection 11/24, 12/22 Herpes simplex 76589804 B00.9 on antiviral Deliveries by O82 Repeat C/S on 04/14/18 Female sterilization 608 82371 Z30.2 Scheduled for 04/14/18 [id number] [facility] [address] [place] [address] [phone] 0 04/13/2018 10:47:16 04/13/2018 17:02:03 care [id number] Z39.2 (04/01/2018) incision check Surgical follow-up 53864 4000 Z09 04/01/2018 Herpes simplex 77609536 B00.9 on antiviral Deliveries by O82 Repeat C/S on 04/01/18 [id number] [facility] [address] [place] [address] [phone] 0 05/11/2018 10:55:10 05/12/2018 16:13:40 care [id number] Z39.2 repeat and tubal (04/01/2018) Homozygous methylenetetrahydrofo late reductase mutation [id number] 44094 E72.12 B12 given on 03/30/18 Advanced m aternal age 505588530 O09.521 Had level 2 US and AFP - both normal. 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 B12 given on 03/30/18 [id number] [facility] [address] [place] [address] [phone] 0 11/03/2018 10:32:24 11/06/2018 12:07:09 Heterozygous methylenetetrahydrofo late reductase mutation [id number] 68768 E72.12 [id number] MD Steve Hernandez ([facility]) [address] [place] [address] [phone] 12/04/2018 10:31:52 12/16/2018 09:29:48 [id number] MD Steve Hernandez ([facility]) [address] [place] [address] [phone] 0 12/08/2018 15:11:00 12/11/2018 10:49:46 Homozygous methylenetetrahydrofo late reductase mutation [id number] 79025 E72.12 Administra tion of influenza vaccine 63531267 Z23 Health Concerns Section Related Observation LastModified by Organization Detai ls LastModified Time None Recorded Concern Status LastModified by Organization Details LastModified Time None Recorded Advance Directives Directive N: Payers Insurance Date Sequence Insurance Name Policy Number Policy Aaron Covered Member ID Aaron Member ID Guarantor Name 03/30/2018 1 [facility] PRIOR TO 08/21/2020 (MEDICAID REPLACEMENT - HMO) Margo Zavala [id number] Margo Zavala 12/22/2017 1 [place] [facility] PUBLIC AID Margo Zavala [id number] Margo Zavala 07/27/2018 1 [place] [facility] PUBLIC [facility] Margo Zavala [id number] Margo Zavala 01/08/2019 1 [facility] PRIOR TO 08/21/2020 (MEDICAID REPLACEMENT - HMO) Margo Zavala [id number] Margo Zavala 10/25/2017 1 [facility] PRIOR TO 08/21/2020 (MEDICAID REPLACEMENT - HMO) Margo Zavala [id number] Margo Zavala Notes Date Note Type Note Provider Name and Address Organization Details Recorded Time 05/11/2018 text/html Post-OpReported bypatient.Associated Symptoms:incision healing well; no fatigue; normal appetite; normal bowel function; no constipation; no nausea; no emesis; pain improving; no pain; no fever; no bleeding; no lower extremity edema/pain; no dysuria/urinary symptomsPostpartum VisitReported bypatient.Associated Symptoms:no abnormal bleeding; no pelvic pain; laceration well healed; no constipation; no fecal incontinence; no dysuria; no urinary incontinence; no fever; no problems; no mastitis 37 yo presented for visit s/p repeat c/s and tubal 04/01/18 Santos Carreno [facility] 05/11/2018 18:16:02 OBGyn Episode Ob Episode Information Episode Created Date Number of Fetuses Patient Bloodtype Patient rh Status Prepregnancy Weight lbs Domestic Partner Domestic Partner Phone Father Name Factory Maintenance Technician Status 10/23/19 15 1 CLOSED Fetus Data First Name Last Name Admitted to NICU Weight (g) Sex Living Outcome Pediatric Complications Fetus ID Race Codes Race Delivery Type 2608.15 4 F Full Term 36641 Only Constantin Calculation Initial Constantin Date Initial Exam Date Initial Exam Provider Initial Ultrasound Date Last Menstrual Period Date Ultra Sound Weeks Gestation 0 Eighteen To Twenty Week Constantin Update Ultra Sound Date Fundal Height At Umbil Quickening Date Ultra Sound Latest Weeks Gestation Final Constantin Confirmed By Final Constantin Confirmed Date Final Constantin Date Ultra Sound Latest Days Gestation 0 0 Menstrual History Last Menstrual Date Menses Monthly On Bcp Conception Prior Menses Frequency Hcg Plus Date Menarche Onset Age Delivery Information Delivery Date Delivery Type Labor Anesthesia Weeks Gestation Incision Type Labor Labor Length Hrs Delivered By Post Complications Tubal Sterilization Discharge Date Comments 1 None 38 Discharge Information Feeding Method Contraceptive Method Maternal HG B and HCT Levels Ob Episode Information Episode Created Date Number of Fetuses Patient Bloodtype Patient rh Status Prepregnancy Weight lbs Domestic Partner Domestic Partner Phone Father Name Factory Maintenance Technician Status 10/23/19 15 1 CLOSED Fetus Data First Name Last Name Admitted to NICU Weight (g) Sex Living Outcome Pediatric Complications Fetus ID Race Codes Race Delivery Type 2296.30 95 F Full Term 31059 Primary Constantin Calculation Initial Constantin Date Initial Exam Date Initial Exam Provider Initial Ultrasound Date Last Menstrual Period Date Ultra Sound Weeks Gestation 0 Eighteen To Twenty Week Constantin Update Ultra Sound Date Fundal Height At Umbil Quickening Date Ultra Sound Latest Weeks Gestation Final Constantin Confirmed By Final Constantin Confirmed Date Final Constantin Date Ultra Sound Latest Days Gestation 0 0 Menstrual History Last Menstrual Date Menses Monthly On Bcp Conception Prior Menses Frequency Hcg Plus Date Menarche Onset Age Delivery Information Delivery Date Delivery Type Labor Anesthesia Weeks Gestation Incision Type Labor Labor Length Hrs Delivered By Post Complications Tubal Sterilization Discharge Date Comments 8 General 37 Discharge Information Feeding Method Contraceptive Method Maternal HG B and HCT Levels Ob Episode Information Episode Created Date Number of Fetuses Patient Bloodtype Patient rh Status Prepregnancy Weight lbs Domestic Partner Domestic Partner Phone Father Name Factory Maintenance Technician Status 10/23/19 15 1 CLOSED Fetus Data First Name Last Name Admitted to NICU Weight (g) Sex Living Outcome Pediatric Complications Fetus ID Race Codes Race Delivery Type 2353.00 85 M Full Term 61906 Vaginal Constantin Calculation Initial Constantin Date Initial Exam Date Initial Exam Provider Initial Ultrasound Date Last Menstrual Period Date Ultra Sound Weeks Gestation 0 Eighteen To Twenty Week Constantin Update Ultra Sound Date Fundal Height At Umbil Quickening Date Ultra Sound Latest Weeks Gestation Final Constantin Confirmed By Final Constantin Confirmed Date Final Constantin Date Ultra Sound Latest Days Gestation 0 0 Menstrual History Last Menstrual Date Menses Monthly On Bcp Conception Prior Menses Frequency Hcg Plus Date Menarche Onset Age Delivery Information Delivery Date Delivery Type Labor Anesthesia Weeks Gestation Incision Type Labor Labor Length Hrs Delivered By Post Complications Tubal Sterilization Discharge Date Comments 6 None 37 Discharge Information Feeding Method Contraceptive Method Maternal HG B and HCT Levels Ob Episode Information Episode Created Date Number of Fetuses Patient Bloodtype Patient rh Status Prepregnancy Weight lbs Domestic Partner Domestic Partner Phone Father Name Factory Maintenance Technician Status 10/23/19 15 1 CLOSED Fetus Data First Name Last Name Admitted to NICU Weight (g) Sex Living Outcome Pediatric Complications Fetus ID Race Codes Race Delivery Type 2296.30 95 F Full Term 62804 Only Constantin Calculation Initial Constantin Date Initial Exam Date Initial Exam Provider Initial Ultrasound Date Last Menstrual Period Date Ultra Sound Weeks Gestation 0 Eighteen To Twenty Week Constantin Update Ultra Sound Date Fundal Height At Umbil Quickening Date Ultra Sound Latest Weeks Gestation Final Constantin Confirmed By Final Constantin Confirmed Date Final Constantin Date Ultra Sound Latest Days Gestation 0 0 Menstrual History Last Menstrual Date Menses Monthly On Bcp Conception Prior Menses Frequency Hcg Plus Date Menarche Onset Age Delivery Information Delivery Date Delivery Type Labor Anesthesia Weeks Gestation Incision Type Labor Labor Length Hrs Delivered By Post Complications Tubal Sterilization Discharge Date Comments 2 None 37 Discharge Information Feeding Method Contraceptive Method Maternal HG B and HCT Levels Ob Episode Information Episode Created Date Number of Fetuses Patient Bloodtype Patient rh Status Prepregnancy Weight lbs Domestic Partner Domestic Partner Phone Father Name Factory Maintenance Technician Status 10/23/19 15 1 CLOSED Fetus Data First Name Last Name Admitted to NICU Weight (g) Sex Living Outcome Pediatric Complications Fetus ID Race Codes Race Delivery Type 2438.05 7 F Full Term 42414 Repeat Constantin Calculation Initial Constantin Date Initial Exam Date Initial Exam Provider Initial Ultrasound Date Last Menstrual Period Date Ultra Sound Weeks Gestation 0 Eighteen To Twenty Week Constantin Update Ultra Sound Date Fundal Height At Umbil Quickening Date Ultra Sound Latest Weeks Gestation Final Constantin Confirmed By Final Constantin Confirmed Date Final Constantin Date Ultra Sound Latest Days Gestation 0 0 Menstrual History Last Menstrual Date Menses Monthly On Bcp Conception Prior Menses Frequency Hcg Plus Date Menarche Onset Age Delivery Information Delivery Date Delivery Type Labor Anesthesia Weeks Gestation Incision Type Labor Labor Length Hrs Delivered By Post Complications Tubal Sterilization Discharge Date Comments 05/06/201 4 Regional-Ep idural 37 Discharge Information Feeding Method Contraceptive Method Maternal HG B and HCT Levels Ob Episode Information Episode Created Date Number of Fetuses Patient Bloodtype Patient rh Status Prepregnancy Weight lbs Domestic Partner Domestic Partner Phone Father Name Factory Maintenance Technician Status 08/30/19 18 1 O Positive 208 bismark zavala [facility] CLOSED Fetus Data First Name Last Name Admitted to NICU Weight (g) Sex Living Outcome Pediatric Complications Fetus ID Race Codes Race Delivery Type Esmera lda [place] ra false 2551.45 5 F Full Term 87561 1074-4 Spani sh Ameri can Christiana n Repeat Problems Problem Notes 01/19/18 baby girl per ultra sound, Anel no middle name Zavala. Factory Maintenance Technician Dr. Kerrie Pak in [place], [place] Bottle feeding. PPBTL for PPBC will sign papers in January. patel hallman Repeat with PPBTL. patel hallman cb-rma verified patel hallman 03/30/2018 mds Problem Name Start Date End Date Resolution Snomed Code Not e Advanced maternal age 08/29/2017 [id number] 5,10-Methylenetetrahydrofola te reductase deficiency 09/07/2017 77942804 Herpes simplex 09/02/2017 87562866 Deliveries by 07/12/2017 [id number] 004 Chronic idiopathic constipation 08/29/2017 58496911 Homozygous methylenetetrahydrofolate reductase mutation 11/24/2017 [id number] Constantin Calculation Initial Constantin Date Initial Exam Date Initial Exam Provider Initial Ultrasound Date Last Menstrual Period Date Ultra Sound Weeks Gestation 04/20/2018 08/29/2017 blair 10/03/2017 07/16/2017 11 Eighteen To Twenty Week Constantin Update Ultra Sound Date Fundal Height At Umbil Quickening Date Ultra Sound Latest Weeks Gestation Final Constantin Confirmed By Final Constantin Confirmed Date Final Constantin Date Ultra Sound Latest Days Gestation 10/04/19 18 11 blair 11/24/201704/20/2 019 4 Pre-miguel Flowsheet Flowsheet Date 08/29/2017 Crum Score Blood Edema Fundus Height Fundus Units Glucose Ketones Leukocytes Nitrite Labor Signs Protein Cervic Dilation Cervic Effacement Cervic Station neg none 6 wks none negative none neg Type Weight in lbs Pre/Post Dialysis Refused Weight 208.524894126692 BP Diastolic BP Location Tested BP Systolic BP Type 72 102 sitting Fetus Heart Rate Present Fetus Movement Comments Previous CS. LMP 07/16/2017. C/o vitamins causing constipation (BM q3 days) - lactulose prescribed. Flowsheet Date 09/15/2017 Crum Score Blood Edema Fundus Height Fundus Units Glucose Ketones Leukocytes Nitrite Labor Signs Protein Cervic Dilation Cervic Effacement Cervic Station Type Weight in lbs Pre/Post Dialysis Refused BP Diastolic BP Location Tested BP Systolic BP Type Fetus Heart Rate Present Fetus Movement Comments Flowsheet Date 09/26/2017 Crum Score Blood Edema Fundus Height Fundus Units Glucose Ketones Leukocytes Nitrite Labor Signs Protein Cervic Dilation Cervic Effacement Cervic Station neg none 10 wks none negative none neg Type Weight in lbs Pre/Post Dialysis Refused Weight 217.640116868408 BP Diastolic BP Location Tested BP Systolic BP Type 74 122 sitting Fetus Heart Rate Present A 156 Present Fetus Movement Comments b12, hsv trinh, blood next tue Flowsheet Date 10/04/2017 Crum Score Blood Edema Fundus Height Fundus Units Glucose Ketones Leukocytes Nitrite Labor Signs Protein Cervic Dilation Cervic Effacement Cervic Station neg none 11 wks none negative neg Type Weight in lbs Pre/Post Dialysis Refused Weight 216.641819003430 BP Diastolic BP Location Tested BP Systolic BP Type 72 120 sitting Fetus Heart Rate Present Fetus Movement Comments Ultrasound confirms viabilit y. Great news. NOT MISCARRIAGE TOLD IN ER Flowsheet Date 10/25/2017 Crum Score Blood Edema Fundus Height Fundus Units Glucose Ketones Leukocytes Nitrite Labor Signs Protein Cervic Dilation Cervic Effacement Cervic Station trace 14 wks none small none trace Type Weight in lbs Pre/Post Dialysis Refused Weight 220.260010699719 BP Diastolic BP Location Tested BP Systolic BP Type 64 116 sitting Fetus Heart Rate Present A 150 Present Fetus Movement Comments 37 yo who presents a t 14.6wks. Previously passed a blood clot and was told in ED she had a miscarriage but US showed viable fetus. She has has PMHX of +MTHFR deficiency and HSV. C/o nausea and tension headaches. She got B12 today, progesterone checked and started on Reglan for nausea Flowsheet Date 11/24/2017 Crum Score Blood Edema Fundus Height Fundus Units Glucose Ketones Leukocytes Nitrite Labor Signs Protein Cervic Dilation Cervic Effacement Cervic Station trace none 19 wks none negative none neg Type Weight in lbs Pre/Post Dialysis Refused Weight 225.748664018604 BP Diastolic BP Location Tested BP Systolic BP Type 66 120 sitting Fetus Heart Rate Present A 154 Present Fetus Movement Comments US 11/17. B12 and flu shot to day. Flowsheet Date 12/22/2017 Crum Score Blood Edema Fundus Height Fundus Units Glucose Ketones Leukocytes Nitrite Labor Signs Protein Cervic Dilation Cervic Effacement Cervic Station neg none 23 wks none negative Horace Kirby neg Type Weight in lbs Pre/Post Dialysis Refused Weight 230.821759729867 BP Diastolic BP Location Tested BP Systolic BP Type 70 104 sitting Fetus Heart Rate Present A 140 Present Fetus Movement A Yes Comments 1 hr GTT and CBC at next vis it. Tdap at next visit. Orders for repeat C/S with tubal ligation. B12 today. Flowsheet Date 01/16/2018 Crum Score Blood Edema Fundus Height Fundus Units Glucose Ketones Leukocytes Nitrite Labor Signs Protein Cervic Dilation Cervic Effacement Cervic Station trace none 26 wks none negative none neg Type Weight in lbs Pre/Post Dialysis Refused Weight 234.121531280762 BP Diastolic BP Location Tested BP Systolic BP Type 78 104 sitting Fetus Heart Rate Present A 158 Present Fetus Movement A Yes Comments 1 hr GTT, tdap, B12 02/16/20 18 Flowsheet Date 03/30/2018 Crum Score Blood Edema Fundus Height Fundus Units Glucose Ketones Leukocytes Nitrite Labor Signs Protein Cervic Dilation Cervic Effacement Cervic Station neg 1+ 37 cm none negative Horace Kirby neg Type Weight in lbs Pre/Post Dialysis Refused With clothes 237.850503808965 BP Diastolic BP Location Tested BP Systolic BP Type 70 110 sitting Fetus Heart Rate Present A 155 Present Fetus Movement A Yes Comments Given B12. Pt desires repeat and tubal sterilization with bilateral salpingectomy on 04/14/18. Tubal papers signed in December 2017. Flowsheet Date 04/13/2018 Crum Score Blood Edema Fundus Height Fundus Units Glucose Ketones Leukocytes Nitrite Labor Signs Protein Cervic Dilation Cervic Effacement Cervic Station Type Weight in lbs Pre/Post Dialysis Refused BP Diastolic BP Location Tested BP Systolic BP Type Fetus Heart Rate Present Fetus Movement Comments Menstrual History Last Menstrual Date Menses Monthly On Bcp Conception Prior Menses Frequency Hcg Plus Date Menarche Onset Age 0507/16/2017 false Genetic Screening And Infection History Question Response Note Patient's Age Will Be 35 Yea rs Or Older At Estimated Date of Delivery true Thalassemia (Irish, Hungarian, Mediterranean, Or Background): MCV < 80 false Neural Tube Defect (Meningom yelocele, Spina Bifida, Or Anencephaly) false Congenital Heart Defect false Down Syndrome false Dru-Sachs (eg, Rastafari, Cajun, Malian-Uruguayan) f alse Keysha Disease false Sickle Cell Disease Or Trait () false Hemophilia Or Other Blood Disorders false Muscular Dystrophy false Cystic Fibrosis false [place]'s Chorea false Mental Retardation/Autism false If Yes, Was Person Tested For Fragile X? false Other Inherited Genetic Or Chromosomal Disorder false Maternal Metabolic Disorder (eg, Type 1 Diabetes , PKU) true Homo MTHFR Patient Or Baby's Father Had A Child With Defects Not Listed Above false Recurrent Loss, Or A Stillbirth false Medications (including Suppl ements, Vitamins, Herbs, OTC Drugs), Illicit/Recreational Drugs, Alcohol true see list If Yes, Agent(s) And Strength/Dosage false Any Other Genetic History false Live With Someone With TB Or Exposed To TB false Patient Or Partner Has History Of Genital Herpes true HSV2 Rash Or Viral Illness Since Last Menstrual Perio d false History Of STD, Gonorrhea, Chlamydia, HPV, Syphi lis false Other Infection History false History of HIV false History of Hepatitis false Prior GBS-infected child false Plans and Education First Trimester Discussed Date Discussion Item Discussion Note Discuss ed By 09/15/2017 Anticipated course o f care [email or web address] 09/15/2017 Alcohol [email or web address] 09/15/2017 Intimate partner violence rh [email or web address] 09/15/2017 Environmental/work hazards r [email or web address] 09/15/2017 Screening for aneuploidy rhu nley1 09/15/2017 Nutrition counseling ; special diet; dietary precautions (mercury, listeriosis) [email or web address] 09/15/2017 Childbirth classes/h ospital facilities [email or web address] 09/15/2017 HIV and other routin e tests [email or web address] 09/15/2017 Risk factors identif ied by history [email or web address] 09/15/2017 Weight gain counseling rhunl ey1 09/15/2017 Exercise [email or web address] 09/15/2017 Teratogens [email or web address] 09/15/2017 Use of any medicatio ns (including supplements, vitamins, herbs, or OTC drugs) [facility] 09/15/2017 01/19/18 bottle feeding, cb-rma [email or web address] 09/15/2017 Sexual activity [email or web address] 09/15/2017 Tobacco/smoking cess ation counseling (ask, advise, assess, assist, and arrange) [facility] 09/15/2017 Illicit/recreational drugs r [email or web address] 09/15/2017 Dental care [facility] 09/15/2017 Travel [email or web address] 09/15/2017 Seat belt use [email or web address] 09/15/2017 Indications for ultrasonography [place] [address] 09/15/2017 Avoidance of saunas or hot tubs [place] [address] 09/15/2017 Toxoplasmosis precau tions (cats/raw meat) [place] [address] Second Trimester Discussed Date Discussion Item Discussion Note Discuss ed By 10/25/[address] [place] [place] [address] 10/25/2017 family planning/tubal sterilization tubal ligation, paper signed, cb-rma [email or web address] 10/25/2017 Depression screening (when indicated) [email or web address] 10/25/2017 Abnormal lab values [facility] 19 10/25/2017 Signs and symptoms o f labor 10/25/2017 Intimate partner violence ms [email or web address] 10/25/2017 Tobacco/smoking cess ation counseling (ask, advise, assess, assist, and arrange) [place] [address] Third Trimester Discussed Date Discussion Item Discussion Note Discuss ed By 01/16/2018 Anesthesia plans repeat [email or web address] [email or web address] 01/16/2018 Circumcision 01/19/18 having a baby girl, yes to circ if boy,cb-rma 01/16/2018 Bottle feeding [email or web address] Trial of labor after (TOLAC) counseling repeat with ppbtl Delivery Information Delivery Date Delivery Type Labor Anesthesia Weeks Gestation Incision Type Labor Labor Length Hrs Delivered By Post Complications Tubal Sterilization Discharge Date Comments 9 [facility] 37.[address] e false Dr. Carreno None true 04/03/2018 Discharge Information Feeding Method Contraceptive Method Maternal HG B and HCT Levels Bottle
--- OUTSIDE RECORDS SUMMARY | 2024-09-06 10:21 | XMS_ITS | Encounter Summary ---
Author Organization [facility] Address [address] [place] [address] Care Team Providers Care Master Fisher Name Role Phone Kerrie Haque MD Primary Care Provider + Encounter Details Date Type Department Care Team (Late st Contact Info) Description 10/17/2018 Abstract [facility] Non Integrated Provider [address] [place] [address] [place] [address] [place] [address] [place] [address] Social History Tobacco Use Types [...] on filedocumented in this encounter Care Teams Master Fisher Relationship Specialty Start Date End Date Kerrie Haque MD [address] [place] [address] IVANA TRUJILLO [phone] PCP - General Family Practice 10/12/18 documented as of this encounter
--- OUTSIDE RECORDS SUMMARY | 2024-09-06 10:21 | XMS_ITS | Clinical Summary ---
Author Organization [facility] Address [address] [facility] [place] [address] Care Team Providers Care Molecular Genetic Pathologist Name Role Phone Unavailable Primary Care Provider Unavailabl e Encounters Date Type Department Care Team Description 08/15/2024 Transcribe Orders [facility] Central Scheduling [address] [place] [address] Angeline Parsons, KAR, ANALYTICS SPECIALIST Other abnormal and inconclusive findings on diagnostic imaging of breast (Primary Dx) 08/15/2024 [facility] [address] [place] [address] [place] [address] Angeline Parsons, CONCRETE SCULPTOR, ANALYTICS SPECIALIST 08/15/2024 Transcribe Orders [facility] Central Scheduling [address] [place] [address] Angeline Parsons, KAR, ANALYTICS SPECIALIST Other abnormal and inconclusive findings on diagnostic imaging of breast (Primary Dx) from Last 3 Months Social History Tobacco Use Types Packs/Day Years Used Date Smoking Tobacco: Never Assessed Comments Unknown Sex and Gender Information Value Date Recorded Sex Assigned at Not on file Legal Sex Female 10:20 AM CDT Gender Identity Not on file Sexual Orientation Not on file Plan of Treatment Health Maintenance Due Date Last Done Comments Hepatitis C Virus (HCV) Screening 1980 Mammogram 1980 TdaP Immunization 1980 Human Papillomavirus (HPV) Immunization (1 - 3-dose series) 08/14/1995 Hepatitis B Immunization (1 of 3 - 19+ 3-dose series) 08/14/1999 Pap Smear 2001 Cervical Cancer Screening (CCS) 2010 HPV/Cotest 2010 Discussion re Starting/Frequ ency of Mammograms 2020 SARS-COV-2 Immunization (2023-25 season) 2023 Influenza Immunization (#1) 2024 Respiratory Syncytial Virus (RSV) Immunization (Adult) (1 - 1-dose 75+ series) 08/14/2055 Meningococcal Immunization (ACWY) Aged Out No longer eligible based on patient's age to complete this topic Pneumococcal Immunization Combined Aged Out No longer eligible based on patient's age to complete this topic Rotavirus Immunization Aged Out No lo nger eligible based on patient's age to complete this topic
--- OUTSIDE RECORDS SUMMARY | 2024-09-06 10:22 | XMS_ITS | Clinical Summary ---
Author Organization [facility] [employer] Address [address] [place] [address] Care Team Providers Care Director Of District Office Name Role Phone Kerrei Haque MD Primary Care Provider [phone] Kerrie Haque MD Unavailable [phone] Source Comments [facility],non-owned Affiliates and Associated Physician Practices is amultiple site organization consisting of ambulatory clinics and hospital sitesin [place], [place], [place] and [place]. This disclosure is being madepursuant to the Care Everywhere program and may not contain all information available regarding this patient. 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 [phone] PCP - General Family Medicine 09/13/17 Kerrie Haque MD [address] [place] [phone] Family Medicine 09/13/17
--- OUTSIDE RECORDS SUMMARY | 2024-09-06 10:22 | XMS_ITS | Clinical Summary ---
Author Organization [facility] Address [address] [place] [address] Phone Care Team Providers Care Mva Reactor Operator Head Name Role Phone Kerrie Haque MD Primary [...] Done Comments Pre-Diabetes and Diabetes Screening 1980 HPV VACCINES (1 - 3-dose series) 08/14/1995 DTAP/TDAP/TD VACCINES (1 - Tdap) 08/14/1999 HEPATITIS B VACCINES (1 of 3 - 19+ 3-dose series) 07/23 HPV/Cotest (21-29) 2001 CERVICAL CANCER SCREENING 2010 HPV/Cotest (30-65) 2010 PAP SMEAR 2010 BREAST CANCER SCREENING 2020 INFLUENZA VACCINE (#1) 2024 12/12/2017 Medical Devices Implanted Type Area Senior Cognos Developer Device Identifier Shelf Expiration Date Model / Serial / Lot Seamguard Endogia 60 Blck [id number] - [id number] Implanted:Qty : 2 on 10/25/2018 by Perfecto Galeana MD at [facility] Biological N/A: Stom[employer] 07/21/2021 [id number] / / [id number] Seamguard Endogia 60 Prpl [id number] - [id number] Implanted:Qty : 2 on 10/25/2018 by Perfecto Galeana MD at [facility] Biological N/A: Stomach [employer] 07/21/2021 [id number] / / [id number] Insurance [employer] MEDICA[employer] RX [employer] Medicare Part D RX [employer] (INTERNAL) [facility] Internal Plans Advance Directives For more information, please contact: [phone] * Full Code (Latest Code Status on File) Date Activated Date Inactivated Comments 10/25/2018 5:36 PM 10/26/2018 7:38 PM * Full Code Date Activated Date Inactivated Comments 10/25/2018 12:08 PM 10/25/2018 5:36 PM * Full Code Date Activated Date Inactivated Comments 10/25/2018 11:53 AM 10/25/2018 12:08 PM Care Teams Mva Reactor Operator Head Relationship Specialty Start Date End Date Kerrie Haque MD [address] [place] [address] [place] [address] PCP - General Family Practice 10/12/18
--- OUTSIDE RECORDS SUMMARY | 2024-09-06 10:22 | XMS_ITS | Encounter Summary ---
Author Organization [facility] Address [address] [place] [address] Phone Care Team Providers Care Algologist Name Role Phone Unavailable Primary Care Provider Unavailabl e Encounter Details Date Type Department Care Team (Late st Contact Info) Description 08/15/2024 Transcribe Orders [facility] Call Center [address] [place] [address] Angeline Parsons, LAST MARKER, FUEL CELL BUILDER [address] [place] [address] [place] [address] Social History Tobacco Use Types Packs/Day Years [...]
--- OUTSIDE RECORDS SUMMARY | 2024-09-06 10:22 | XMS_ITS | Data Portability ---
Author Organization [place] [facility] [employer], Main Office Address [address] [place] [address] Assessment No assessment recorded. Plan of Treatment Reminders Order Date Submit Date Provider Last Modified By Organization Details Last Modified Time Details Appointments None recorded. Lab pap, IG + CT/NG + reflex HR HPV 2024 025 [facility] Out[facility], [address] [place], [address], 5 14:30:00 TSH + free T4, serum 2024 025 [facility] Outpatient Lab, [address] [place], [address], 5 17:41:37 T3, free, serum or plasma 2024 025 [facility] [place] Out[facility], [address] [place], [address], 5 08:21:19 lipid panel, serum 2024 025 [facility] Lab, [address] [place], [address], 5 17:41:37 CBC w/ auto diff 2024 025 [facility] [place], [address] [place], [address], 5 08:21:19 ferritin, serum or plasma 2024 025 [facility] [place], [address] [place], [address], 5 08:21:20 magnesium, serum or plasma 2024 [facility] [place], [address] [place], [address], 5 08:21:20 iron + total iron-jose a ng capacity (TIBC), serum 2024 [facility] [place], [address] [place], [address], 5 08:21:20 vitamin D, 25-hydroxy , total, serum 2024 [facility] [place], [address] [place], [address], 5 08:21:20 vitamin B12 + folate, serum or blood 2024 025 [facility] Out[facility] Lab, [address] [place], [address], 5 17:41:38 CMP, serum or plasma 2024 [facility], [address] [place], [address], 5 17:41:37 HbA1c (hemoglobi n A1c), blood 2024 025 [facility] [place], [address] [place], [address], 5 08:21:19 Referral neurologic al surgeon referral - Please call patient to schedule an appointmen t. Pt has [facility] as of July 22 per patient.. Thank you. 2024 025 GINA Fuller MD, [address], [place], [address], 18:25:17 Procedures None recorded. Surgeries None recorded. Imaging MAMMO, screening, digital, bilateral - Please call patient to schedule. 2024 025 [email or web address] [facility] (One Call Scheduling), [address] [facility], [place], [address], 11:01:12 Medication Orders lactulose 10 gram/15 mL oral solution 2024 025 [id number], [address] , [place], [place], [id number], 09:34:51 Patient TargetsNo targets recorded. Patient InstructionsNo instructions recorded. Reason for Referral Neurological Surgeon Referra l for Chronic low back pain Please call patient to schedule an appointment. Pt has [facility] as of July 22 per patient.. Thank you. Referring Physician: Angeline Parsons, Family Medicine, Encounter Date: 06/18/2024 Results Created Date Observation Date Name Description Value Unit Range Abnormal Flag Note LastModifiedBy Organization Detail LastModifiedTime 07/25/1907/24/2024 MAMMO , scree ulysses, digit al, bilat eral No observ ation record ed. [address] [facility], [place], [address], 07/25/2024 09:40:51 07/25/19 25 07/24/2024 MAMMO , scree ulysses, digit al, bilat eral No observ ation record ed. [address], [place], [address], 07/25/2024 09:40:52 07/26/19 25 07/24/2024 imagi ng/di demetrisos tic resul t No observ ation record ed. [facility] (Mammography) [address], [place], [address], 07/25/2024 09:31:02 Result Notes None recorded. Problems Name Problem SNOMED Code Status Onset Date Resolution Date Notes Provider Name and Address Organization Details Recorded Time Dysuria 70376798 Active 2022 Kerrie Haque MD [address], [place], [address], [employer] 3 12:32:02 Chronic low back pain 152035670 Active 2024 MICHELLE Patiño-Brianda [address], [address], [place], [address], [employer] 09:27:11 Constipation 05983261 Active 2024 MARCO A Patiño [address], [place], [address], [employer] 09:30:05 Mammography abnormal 432626650 Active 2024 MARCO A Patiño [address], [place], [address], [employer] 09:12:30 Problem Notes None recorded. Procedures Surgical History Date Name Laterality Status Provider Name and Address Organization Details Recorded Time bariatric operative procedure completed Rosalinda Juarez MA [employer] 06/18/2024 09:09:11 graft of skin to skin completed Rosalinda Juarez MA 51edj [employer] 06/18/2024 09:09:32 abdominoplasty completed Rosalinda Juarez MA 51edj [employer] 06/18/2024 09:10:12 ligation of fallopian tube completed Rosalinda Juarez MA 51edj [employer] 06/18/2024 09:10:49 Imaging Results None recorded. Procedure Notes None recorded. Medical Equipment None Reported. Allergies No known drug allergies Medications Name Sig Start Date Stop Date Status Note LastModified by Organization Details LastModified Time cyclobenzap rine 10 mg tablet TAKE 1/2 TO 1 TABLET BY MOUTH TWICE A DAY 04/28 /2025 completed Not Available Not Available Not Available [...] active Not Available Not Available Not Available tirzepatide (weight loss) active Not Available Not Available Not Available Vitals Date Recorded Body mass index (BMI) Body height Oxygen saturation Oxygen saturation in Arterial blood by Pulse oximetry Heart rate Body temperature Body weight Provider Name and Address Organization Details Last Updated DateTime 2 24.8 kg/m2 160.02 cm 98 % 98 % 78 /min 96.9 [degF] 99902.9 3 g Not Available [facility] 3 14:54:24 Date Recorded Body height Body mass index (BMI) Body weight Body temperature Heart rate Oxygen saturation Oxygen saturation in Arterial blood by Pulse oximetry Systolic And Diastolic Provider Name and Address Organization Details Last Updated DateTime 5 157.48 cm 28.3 kg/m2 52250.8 2 g 98.5 [degF] 75 /min 99 % 99 % 114/68 mm[Hg] Rosalinda Juarez MA [facility] [employer] [facility] 5 09:05:08 Date Recorded Body mass index (BMI) Body height Oxygen saturation Oxygen saturation in Arterial blood by Pulse oximetry Heart rate Body temperature Body weight Systolic And Diastolic Provider Name and Address Organization Details Last Updated DateTime 2 25.9 kg/m2 160.02 cm 98.02 % 98.02 % 76.02 /min 97.3 [degF] 50356.4 9 g 122/60 mm[Hg] Not Available [facility] 3 14:54:23 Date Recorded Body height Body mass index (BMI) Body weight Body temperature Heart rate Oxygen saturation Oxygen saturation in Arterial blood by Pulse oximetry Systolic And Diastolic Provider Name and Address Organization Details Last Updated DateTime 5 157.48 cm 26.5 kg/m2 81760.8 9 g 98.4 [degF] 72 /min 98 % 98 % 118/70 mm[Hg] MatthewKAYLA Mark [place] [facility] [employer] [facility] 10:03:45 Social History Question Answer Notes LastModified by Organizat ion Details LastModified Time Tobacco Smoking Status Never Smoker Not Available [facility] 04/21/2022 14:53:55 What Is Your Level Of Caffeine Consumption? None Information not available 06/18/2024 In The 14 Days Before Symptom Onset, Have You Had Close Contact With A Laboratory-confir med COVID-19 While That Case Was Ill? No [id number] Information not available 04/21/2022 In The 14 Days Before Symptom Onset, Have You Had Close Contact With A Person Who Is Under Investigation For COVID-19 While That Person Was Ill? No [id number] Information not available 04/21/2022 What Type Of Diet Are You Following? REGULAR [id number] Information not available 04/21/2022 Have There Been [...] Has Tobacco Cessation Counseling Been Provided? No [id number] Information not available 04/21/2022 Have You Recently Traveled Abroad? No [id number].[id number] Information not available 04/21/2022 Are You Currently In School? No Information not available 06/18/2024 Do You Have Any Dietary Restrictions? No [id number].[id number] Information not available 04/21/2022 Sex: Unknown Functional Status Question Answer Note LastModified by Organizat ion Details LastModified Time Do you use any illicit or recreational drugs? No Information not available 06/18/2024 Do you or have you ever used any other forms of tobacco or nicotine? No [id number] Information not available 04/21/2022 What is your level of alcohol consumption? None Information not available 06/18/2024 Are you currently employed? No Information not available 06/18/2024 What is your exercise level? Occasional [id number] Information not available 04/21/2022 Mental Status Question Answer Note LastModified by Organization D etails LastModified Time Do you feel stressed (tense, restless, nervous, or anxious, or unable to sleep at night)? [id number] Information not available 06/18/2024 Family History Relationship Description Onset Age of this Age Resolved Age Notes LastModified by Organization Details LastModified Time Mother Hypertensive disorder [id number] Not available 04/21/2022 14:54:10 Mother History of thyroid disorder frivastorres Not available 08:58:32 Father Hypertensive disorder [id number] Not available 04/21/2022 14:54:10 Father History of thyroid disorder frivastorres Not available 08:58:32 Medical History No medical history recorded. Gynecological History Statement/Question Response Abnormal Pap N Date of LMP 07/08/2024 STIs/STDs N Dislike of Light during Menstrual [...] Non-US Vaccine (COVAXIN) 05/04/2020 completed Not Available [facility] 3 14:57:06 Influenza, split virus, quadrivalent, PF 01/10/2022 completed Not Available [facility] 14:57:06 Past Encounters Encounter ID Performer Location Encounter Start Date Encounter Closed Date Diagnosis/Indication Diagnosis SNOMED-CT Code Diagnosis ICD10 Code Diagnosis Note [id number] MICHELLE Finley [facility] Primary [facility] [place] [address] [facility] [address] [place] [address] 06/17/2020 00:00:00 06/17/2020 20:04:22 [id number] Kerrie Haque MD [facility] Primary [place] [address] [place] [address] [address] [place] [address] 07/15/2020 00:00:00 07/15/2020 09:24:10 [id number] MICHELLE Finley [facility] Primary [facility] [place] [address] [facility] [address] [place] [address] 08/12/2020 00:00:00 08/12/2020 10:58:45 [id number] JOSE Ortez [facility] Primary Care [place] [address] [facility] [address] [place] [address] 01/28/2021 00:00:00 01/28/2021 20:59:43 [id number] JOSE Ortez [facility] Primary Care [place] [address] [facility] [address] [place] [address] 03/23/2021 00:00:00 03/23/2021 16:19:32 [id number] JOSE Ortez [facility] Primary [facility] [place] [address] [facility] [address] [place] [address] 06/24/2021 00:00:00 06/24/2021 21:34:26 [id number] MARCO A Patiño [facility] Primary Care [facility] [address] [facility] [address] [place] [address] 06/18/2024 08:56:34 06/18/2024 09:34:45 Adult health examination 651530710 Z00.00 Discussed medication compliance and routine follow up.Discuss ed healthy diet and routine exercise.Dominga arciniegawed vaccine records and made recommenda tions as needed.Enc ouraged annual eye and dental exams, as well as twice yearly dental cleanings. Will check screening labs as listed below. Family his tory of Cardiovascular disease 598955208 Z82.49 Thyroid di sorder screening 070355024 Z13.29 Diabetes m ellitus screening 536740104 Z13.1 Screening mammography 24 701160 Z12.31 History of bariatric surgical procedure 614151050 Z98.84 Chronic low back pain 27 2717417 M54.50 accident in 2003, was previously seeing neuro and was told she needed surgery but did not want it at that time. Body mass index 25-29 - overweight 581838479 Z68.28 Weight: 155 poundsBMI: 28.3Discus sed healthy diet and routine exercise. Constipation 10907618 K5 9.00 Increase water intake as tolerated. Will restart Lactulose as listed below. [id number] MARCO A Patiño [facility] Primary Care [facility] [address] [facility] [address] [place] [address] 06/20/2024 09:49:05 06/20/2024 10:21:06 [id number] MARCO A Patiño [facility] Primary Care [facility] [address] [facility] [address] [place] [address] 08/08/2024 09:45:53 08/08/2024 10:22:18 Gynecologic examination 70766765 Z01.419 Patient tolerated well Health Concerns Section Related Observation LastModified by Organization Detai ls LastModified Time None Recorded Concern Status LastModified by Organization Details LastModified Time None Recorded Advance Directives Directive None Recorded Payers Insurance Date Sequence Insurance Name Policy Number Policy Aaron Covered Member ID Aaron Member ID Guarantor Name 08/08/2024 1 [place] [employer] [employer] Margo Zavala [id number] Margo Zavala 06/18/2024 1 *SELF PAY* Sh brittni Zavala 08/08/2024 1 [facility] (MEDICAID REPLACEMENT - HMO) [id number] Margo Zavala [id number] Margo Zavala Notes Date Note Type Note Provider Name and Address Organization Details Recorded Time 06/18/2024 text/html Patient is a 43 year old female that presents to the office to establish care. blurry vision over the last few months, has not been to the eye doctor. labs- orderedWWE- awareMammogram- orderedColonosco py-age 45Flu- declinesCovid- UTD, initialTdap- awareShingles-ag e 50 MARCO A Patiño [address], [address], [place], [address], [employer] 06/18/2024 09:35:15 08/08/2024 text/html Patient is a 43 year old female that presents to the office for well woman exam. Patient denies all concerns at this time including chest pain and shortness of breath. MARCO A Patiño [address], [address], [place], [address], [employer] 08/08/2024 10:20:45 OBGyn Episode No OBEpisode recorded.
== END 2024-09-06 10:19 | disposition home or self-care (01) ==
PROVIDERS: PCP Family Medicine; Visit Provider Nurse Practitioner Family
DX: R92.8 Other abnormal and inconclusive findings on diagnostic imaging of breast (principal)
CPT/HCPCS: 77061; 77065; G0279

== ENCOUNTER 2024-09-12 14:30 | Outpatient (RCR) | payer BC, SELFPAY ==
--- NOTE | 2024-08-08 17:28 | OPREHPOC ---
Outpatient Therapy Plan of Care This is a Multidisciplinary Plan of Care that may contain components documented by all disciplines (PT, OT, and ST.) PT Problem 1 PT Problem #1 Knowledge Deficit PT Goal 1 Goal / Goal Update Patient to demonstrate independence with HEP for improved self-reliance of symptom management. Target Visit 4 PT Problem 2 PT Problem #2 Pain PT Goal 1 Goal / Goal Update 1. Patient to report an improvement in radiating symptoms by 50% to increase ability to perform ADLs. 2. Patient to decrease subjective reports of low back pain to <4/10 when walking greater than 10 minutes for improved ADL tolerance 3. Patient will decrease their Modified Oswestry score by at least 10 points to indicate significant improvement in functional abilities and quality of life. Target Visit 8 PT Problem 3 PT Problem #3 Impaired Range of Motion PT Goal 1 Goal / Goal Update The patient will perform lumbar AROM without peripheralization of pain for druze of functional movement. Target Visit 8 PT Problem 4 PT Problem #4 Impaired Strength PT Goal 1 Goal / Goal Update Patient to demonstrate R LE strength >=4+/5 for improved functional stability required for ADLs. Target Visit 8
--- NOTE | 2024-08-08 17:28 | PTOPEVAL1 ---
Assessment and note entered by Ida Marie, PT Evaluation Information Assessment Status Evaluation ICD-10 Condition Codes (PT) Radiculopathy, lumbar region M54.16 Subjective Information Pt reports hurting her back in 2003 when lifting heavy boxes. She was supposed to have a fusion surgery due to various disc protrusions and fluid leakage at L5/S1 per pt. However, she opted out of the surgery because of her age. She reports the pain was never this bad but as she aged it continues to get worse. She has also been losing weight to also help with the back pain. Some mornings she is unable to lift her R leg, it feels very heavy. She thinks if she sleeps on her R side it falls asleep and gets tingling and enlarged. She tries to stay more active, walks every night but she gets burning in the back and leg. She notes getting very tired easily. She also reports when her leg gets tired her R leg will shake uncontrollably. Reported Pain Level Pain Score 4,4: Self Report Assessment PT Clinical Summary Pt is a 43 year old female who presents to physical therapy with signs and symptoms consistent with lumbar radiculopathy. Pt demonstrates R LE weakness, peripheralization of pain with lumbar mobility, decreased lumbar ROM, diminished R LE reflexes, muscle spasms, and tenderness upon palpation that limit their ability to perform ADLs. Pt will benefit from skilled physical therapy to address the above listed deficits and return to PLOF. HEP instructed and written handout provided, EX tolerated well with no adverse effects to note post-session. Pt was educated on importance of adherence to HEP. Pt was also educated on anatomy, prognosis, body positioning, home modalities, and PT POC. Plan of Care Interventions Electrical Stimulation,Gait Training,Hot Pack/Cold Pack,Manual Therapy,Mechanical Traction,Neuro Re- education,Therapeutic Activities,Therapeutic Exercise PT Services Indicated Yes Treatment Frequency and 2x/wk for 8 visits Duration These treatments will address the objective and functional deficits as defined above. The patient will be advanced safely and appropriately in order for the patient to progress towards his/her prior level of function. Additional exercises will be introduced and as well as a comprehensive home exercise program upon discharge, if needed, ?to ensure carryover of functional gains achieved in the clinic. This treatment plan has been reviewed and agreement upon by the patient.
--- NOTE | 2024-09-04 10:11 | PCPTNOTE ---
Cancelled today, daughter ill, per front office. AKS
--- NOTE | 2024-09-12 15:02 | PTOPDC ---
Assessment and note entered by Ida Marie, PT Evaluation Information Assessment Status Discharge ICD-10 Condition Codes (PT) Radiculopathy, lumbar region M54.16 Subjective Information Pt continues to report constant low back pain with radicular symptoms into the R LE. She has to force herself to keep going because she has kids and a household to take care of. She is still walking at least a mile a day but reports the burning pain. Reported Pain Level Pain Score 4,7: Self Report Pain Score 4,7: Self Report Assessment PT Clinical Summary Patient's condition has made little to no advancements in symptoms, mobility, strength, or functional tolerance to ADLs. Pt has completed several sessions of physical therapy consisting of stretching, strengthening, nerve glides, manual therapy techniques, and manual traction with no relief or changes in objective measures. Pt's PT goals remain unmet with little to no progress made towards them. Patient to DC from PT this date and continue with HEP as instructed. Pt to contact PT or PCP if questions or concerns arise. At this time the pt would benefit from additional medical evaluation or diagnostic imaging to determine the best course of treatment and etiology of signs and symptoms. Plan of Care PT Services Indicated Yes
== END 2024-09-12 16:41 | disposition home or self-care (01) ==
LOC: ANHPT 14:30
PROVIDERS: PCP Family Medicine
DX: M54.16 Radiculopathy, lumbar region (principal)
CPT/HCPCS: 97014; 97110; 97140; 97161; 97530; G0283